=== PATIENT | male | born 1955 | race Caucasian/White ===

== ENCOUNTER 2023-01-02 18:43 | Inpatient (IN) | payer MEDICARE, OTHER ==
[~2023-01-02] VITALS: Ht 170.2 cm; Wt 55.3 kg
--- NOTE | 2023-01-02 19:41 | NUR ---
BLOOD DRAWN AND SENT TO LAB.
--- NOTE | 2023-01-02 19:50 | NUR ---
[facility] ACCORDING TO RESPIRATORY EQUIPMENT ASSISTANT REPORT PTS HGB IS 6.8. A/O X4 TOLORATING ROOM AIR WELL O2SAT 96%.
[2023-01-02 20:29] LABS: CREATININE 3.5 mg/dL (0.6-1.3); POTASSIUM 3.6 mmol/L (3.5-5.1)
[2023-01-02 20:42] LABS: BASOPHILS % (AUTO) 0.3 % (0.0-2.0); EOSINOPHILS % (AUTO) 1.7 % (0.0-6.0); HEMATOCRIT 22 % (39-51); LYMPHOCYTES # (AUTO) 0.8 K/uL (0.8-4.8); LYMPHOCYTES % (AUTO) 8.7 % (20.0-44.0); MEAN CORPUSCULAR HGB CONC 32 g/dl (31.0-36.0); MEAN CORPUSCULAR VOLUME 77 fL (80-96); MONOCYTES # (AUTO) 1.1 K/uL (0.1-1.30); MONOCYTES % (AUTO) 12.2 % (2.0-12.0); NEUTROPHILS # (AUTO) 6.9 K/uL (1.8-8.9); NEUTROPHILS % (AUTO) 77.1 % (43.0-81.0); PLATELET COUNT (AUTO) 538 K/uL (150-450); RED BLOOD CELL COUNT(AUTO) 2.84 MIL/uL (4.5-6.0); WHITE BLOOD COUNT (AUTO) 8.9 K/uL (4.3-11.0)
--- NOTE | 2023-01-02 22:03 | NUR ---
JIL SWABED AND SENT TO LAB.
[2023-01-02] MEDS ORDERED: PIPERACILLIN /TAZOBACTAM 3.375 G in IV D5W 50 ML IV ONE (22:30)
[2023-01-02 22:44] LABS: BILIRUBIN,DIRECT 0.2 mg/dL (0.0-0.2); BILIRUBIN,TOTAL 0.2 mg/dL (0.2-1.0); TOTAL PROTEIN, SERUM 7.6 g/dL (6.4-8.2)
[2023-01-02] MEDS ORDERED: PIPERACILLIN /TAZOBACTAM 3.375 G VIAL IV ONE (22:45)
[2023-01-02 22:46] LABS: ALBUMIN 1.4 g/dL (3.4-5.0)
[2023-01-03] VITALS (10 sets, daily range): BP systolic 112–144; BP diastolic 58–98
[2023-01-03] MEDS ORDERED: Z GUARD REMEDY 4 OZ OINT TP PRN
[2023-01-03] MEDS ORDERED: ACETAMINOPHEN 325 MG TABLET PO PRN
[2023-01-03] MEDS ORDERED: ONDANSETRON HCL/PF 4 MG/2 ML VIAL IVP PRN
--- NOTE | 2023-01-03 01:02 | NUR ---
REPORT GIVEN TO PAULINE UFLLER FOR KAMERON
--- NOTE | 2023-01-03 01:25 | NUR ---
[place] AND RN AT BEDSIDE WITH ACLS PROTOCOL. NAD NOTED DURING TRANSPORT.
--- NOTE | 2023-01-03 02:30 | NUR ---
DEBURR TECHNICIAN ADMISSION NOTES ADMITTED AT 67 Y/O MALE, A/O X 3, NON-AMBULATORY CAME FROM ER VIA GURNEY. TRANSFER TO BED SAFELY AND SECURED. NOTED RIGHT UPPER CHEST CATHETER FOR HD USE. WITH IV ACCESS AT RIGHT MIDLINE #20G PATENT AND INTACT. NOTED G-TUBE IN PLACED. HEAD TO TOE ASSESSMENT DONE AND RECORDED. INITIAL SKIN ASSESSMENT DONE NOTED DRY SKIN. PM CARE RENDERED. G-TUBE DRESSING DONE KEPT CLEAN AND DRY. ALL BELONGINGS ARE ACCOUNTED FOR. PATIENT IS ON HEMODIALYSIS TREATMENT,FOR SWALLOW AND PT EVALUATION IN AM. ON NPO FOR NOW. PATIENT ORIENTED TO THE FACILITY AND HOW TO USE THE CALL LIGHT. KEPT BED ON LOWER LOCKED POSITION. KEPT SIDE RAILS UP X 3 ALL THE TIME. KEPT PATIENT WARM AND COMFORTABLE. SAFETY PRECAUTIONS MAINTAINED.
--- NOTE | 2023-01-03 04:27 | NUR ---
CERAMIC DESIGN ENGINEER NOTES DOCTOR ASKING FOR RECONCILE MEDICATIONS. I ALREADY CALLED [facility] AND SPOKED TO MIKKI REGARDING THE LIST OF MEDICATIONS. STILL TRYING TO FIXED FAX MACHINE AT THIS TIME. WILL CONTINUE TO FOLLOW UP REGARDING THE LIST OF MEDICATIONS.
[2023-01-03] MEDS ORDERED: NEPRO 1,000 ML BOTTLE GT SCH ×2 (05:30→08:15)
--- NOTE | 2023-01-03 06:00 | NUR ---
HAND FUNNEL COATER NOTES STARTED G-TUBE FEEDING OF NEPRO 1.8 KCAL AT 65ML/HR TO RUN FOR 18 HOURS. WILL CONTINUE TO MONITOR
--- NOTE | 2023-01-03 06:32 | NUR ---
MECHANIC MARINE ENGINE CLOSING NOTES PATIENT IS IN BED, ASLEEP. ON MODERATE HIGH BACK REST POSITION. A/O X 4. UNABLE TO AMBULATE. NO S/S OF PAIN OR ANY DISCOMFORT AT THIS TIME. WITH IV ACCESS AT RIGHT HARESH ARM #20G SALINE LOCK, PATENT AND INTACT. WITH G-TUBE FEEDING WITH NEPRO 1.8 KCAL AT 65ML/HR RUNNING WELL. PATIENT ABLE TO TOLERATE ICE CHIPS, FOR NEPHROLOGY CONSULTS TODAY. STILL WAITING FOR RECONCILE MEDICATIONS. WITH RIGHT UPPER HD CATHETER KEPT CLEAN AND DRY. PM CARE RENDERED. TURN PATIENT FREQUENTLY. CONTINENT USES DIAPER AND URINAL. ATTACHED TO TELE MONITORING DEVICE. KEPT BED ON LOWER LOCKED POSITION. KEPT SIDE RAILS UP X 3 ALL THE TIME. SAFETY PRECAUTION MAINTAINED. WILL ENDORSED TO AM SHIFT FOR KAMERON.
[2023-01-03 07:12] LABS: BASOPHILS % (AUTO) 0.4 % (0.0-2.0); HEMATOCRIT 21 % (39-51); LYMPHOCYTES # (AUTO) 0.8 K/uL (0.8-4.8); LYMPHOCYTES % (AUTO) 8.6 % (20.0-44.0); MEAN CORPUSCULAR HGB CONC 32 g/dl (31.0-36.0); MEAN CORPUSCULAR VOLUME 78 fL (80-96); MONOCYTES # (AUTO) 1.2 K/uL (0.1-1.30); MONOCYTES % (AUTO) 12.8 % (2.0-12.0); NEUTROPHILS # (AUTO) 6.9 K/uL (1.8-8.9); NEUTROPHILS % (AUTO) 76.2 % (43.0-81.0); PLATELET COUNT (AUTO) 599 K/uL (150-450); RED BLOOD CELL COUNT(AUTO) 2.66 MIL/uL (4.5-6.0)
[2023-01-03 07:26] LABS: HEMOGLOBIN 6.6 g/dL (13.5-17.5)
--- NOTE | 2023-01-03 07:30 | NUR ---
LITIGATION SECRETARY OPENING NOTES RECEIVED PATIENT ON BED AWAKE AND A/O X4. ON ROOM AIR TOLERATING WELL. NO SOB NOTED. NOT IN DISTRESS. WITH NO COMPLAINTS OF PAIN AT THIS TIME. PATIENT VOICING OUT CONCERN THAT HE WOULD LIKE TO EAT BY MOUTH. INFORMED THAT SPEECH THERAPIST WILL BE HERE FOR SWALLOW EVAL. ON TELE MONITOR CURRENTLY READING SINUS TACHYCARDIA AT 112BPM. WITH IV ACCESS AT THE RIGHT UPPER ARM MIDLINE G20 SALINE LOCKED, PATENT AND INTACT. ON NEPRO 1.8 KCAL AT 65ML/HR VIA G-TUBE TOLERATING WELL. SAFETY MEASURES IN PLACED. CALL LIGHT WITHIN REACH. BED ON LOWEST LOCKED POSITION, SIDE RAILS UP X2. WILL CONTINUE TO MONITOR.
[2023-01-03 08:08] LABS: CALCIUM, SERUM 9.2 mg/dL (8.5-10.1); MAGNESIUM 2.5 mg/dL (1.8-2.4); PHOSPHORUS 3.4 mg/dL (2.5-4.9); POTASSIUM 3.9 mmol/L (3.5-5.1)
[2023-01-03 08:23] LABS: THYROID STIMULATING HORMONE 2.243 uIU/mL (0.358-3.74)
--- NOTE | 2023-01-03 08:30 | NUR ---
RN NOTE PATIENT WAS ABLE TO SWALLOW APPLE SAUCE AND ATE CRACKERS WITHOUT DIFFICULTY.
[2023-01-03] MEDS: PANTOPRAZOLE 40 MG TABLET.DR PO SCH (09:47)
[2023-01-03] MEDS ORDERED: BISA10SU11 RC (10:25)
[2023-01-03] MEDS ORDERED: SENN-261 GT (10:25)
[2023-01-03] MEDS ORDERED: PSYL1PAC8 GT (10:25)
[2023-01-03] MEDS ORDERED: TRAZ-257 GT (10:25)
[2023-01-03] MEDS ORDERED: NUT.237L67 GT (10:25)
[2023-01-03] MEDS ORDERED: NA P133E RC (10:25)
[2023-01-03] MEDS ORDERED: LIPA1CAP27 GT (10:25)
[2023-01-03] MEDS ORDERED: FAMO20TA8 GT (10:25)
[2023-01-03] MEDS ORDERED: NICO-676 TD (10:25)
[2023-01-03] MEDS ORDERED: ACET-868 GT (10:25)
[2023-01-03] MEDS ORDERED: SEVE400T3 GT (10:25)
[2023-01-03] MEDS ORDERED: PANT40SU2 GT (10:25)
[2023-01-03] MEDS ORDERED: HYDR-3980 GT (10:25)
[2023-01-03] MEDS ORDERED: POLY17PO4 GT (10:25)
[2023-01-03] MEDS ORDERED: SIME80TA15 GT (10:25)
--- NOTE | 2023-01-03 12:10 | NUR ---
RN NOTE PATIENT WAS ORDERED BY KATARZYNA CHICAS DNP FOR BLOOD TRANSFUSION 1U PRBC FOR HGB 6.6. VITAL SIGNS CHECKED-STABLE. CONSENT FOR BLOOD TRANSFUSION SIGNED BY PATIENT. BLOOD PRODUCT CHECKED BY 2 RNs. BLOOD TRANSFUSION STARTED AT 60ML/HR. WILL RECHECK VITAL SIGNS AFTER 15MINS. WILL MONITOR PATIENT.
--- NOTE | 2023-01-03 18:44 | NUR ---
CUSTOMER ACCOUNT EXECUTIVE CLOSING NOTES PATIENT ON BED AWAKE AND A/O X4. ON ROOM AIR TOLERATING WELL. NO SOB NOTED. NOT IN DISTRESS. WITH NO COMPLAINTS OF PAIN AT THIS TIME. ON TELE MONITOR CURRENTLY READING SINUS TACHYCARDIA AT 115BPM. WITH IV ACCESS AT THE RIGHT UPPER ARM MIDLINE G20 SALINE LOCKED, PATENT AND INTACT. ON NEPRO 1.8 KCAL AT 65ML/HR VIA G-TUBE TOLERATING WELL. PATIENT ON RENAL STD DIET CHOPPED FINE FOR ORAL GRATIFICATION. SAFETY MEASURES IN PLACED. CALL LIGHT WITHIN REACH. BED ON LOWEST LOCKED POSITION, SIDE RAILS UP X2. WILL ENDORSE TO NEXT SHIFT FOR KAMERON.
--- NOTE | 2023-01-03 19:30 | NUR ---
FOUNDER OPENING PATIENT ON BED AWAKE AND A/O X4. ON ROOM AIR TOLERATING WELL. NO SOB NOTED. NOT IN DISTRESS. WITH NO COMPLAINTS OF PAIN AT THIS TIME. ON TELE MONITOR CURRENTLY READING SINUS TACHYCARDIA AT 115BPM. WITH IV ACCESS AT THE RIGHT UPPER ARM MIDLINE G20 SALINE LOCKED, PATENT AND INTACT. ON NEPRO 1.8 KCAL AT 65ML/HR VIA G-TUBE TOLERATING WELL. PATIENT ON RENAL STD DIET REGULAR ORAL GRATIFICATION. SAFETY MEASURES IN PLACED. CALL LIGHT WITHIN REACH. BED ON LOWEST LOCKED POSITION, SIDE RAILS UP X2.
[2023-01-03 19:55] LABS: EOSINOPHILS % (MANUAL) 4 % (0-4); LYMPHOCYTES % (MANUAL) 9 % (16-48); MONOCYTES % (MANUAL) 11 % (0-11.0); NEUTROPHILS % (MANUAL) 76 (42-76)
[2023-01-03] MEDS ORDERED: POLYETHYLENE GLYCOL 3350 17 GM POWD.PACK PO PRN (21:30)
--- NOTE | 2023-01-03 22:35 | NUR ---
RN NOTE PRN NORCO GIVEN TOLERATED WELL.
[2023-01-03] MEDS ORDERED: HYDROCODONE/APAP 5/325MG TABLET PEG PRN (23:00)
[2023-01-04] VITALS (12 sets, daily range): BP systolic 126–144; BP diastolic 77–101
[2023-01-04 06:11] LABS: BASOPHILS % (AUTO) 0.5 % (0.0-2.0); EOSINOPHILS % (AUTO) 2.9 % (0.0-6.0); HEMATOCRIT 21 % (39-51); LYMPHOCYTES % (AUTO) 11.1 % (20.0-44.0); MEAN CORPUSCULAR HGB CONC 33 g/dl (31.0-36.0); MEAN CORPUSCULAR VOLUME 78 fL (80-96); MONOCYTES # (AUTO) 1.1 K/uL (0.1-1.30); MONOCYTES % (AUTO) 12.9 % (2.0-12.0); NEUTROPHILS # (AUTO) 6.3 K/uL (1.8-8.9); NEUTROPHILS % (AUTO) 72.6 % (43.0-81.0); PLATELET COUNT (AUTO) 523 K/uL (150-450); RED BLOOD CELL COUNT(AUTO) 2.65 MIL/uL (4.5-6.0); WHITE BLOOD COUNT (AUTO) 8.6 K/uL (4.3-11.0)
--- NOTE | 2023-01-04 06:13 | NUR ---
RN CLOSING NOTE PATIENT ON BED AWAKE AND A/O X4. ON ROOM AIR TOLERATING WELL. NO SOB NOTED. NOT IN DISTRESS. WITH NO COMPLAINTS OF PAIN AT THIS TIME. ON TELE MONITOR CURRENTLY READING SINUS TACHYCARDIA AT 110BPM. WITH IV ACCESS AT THE RIGHT UPPER ARM MIDLINE G20 SALINE LOCKED, PATENT AND INTACT. ON NEPRO 1.8 KCAL AT 50ML/HR VIA G-TUBE TOLERATING WELL. PATIENT ON RENAL STD DIET CHOPPED FINE FOR ORAL GRATIFICATION. PT CURRENTLY HAVING DIALYSIS AT BEDSIDE. SAFETY MEASURES IN PLACED. CALL LIGHT WITHIN REACH. BED ON LOWEST LOCKED POSITION, SIDE RAILS UP X2. WILL ENDORSE TO NEXT SHIFT FOR KAMERON
[2023-01-04 06:26] LABS: HEMOGLOBIN 6.9 g/dL (13.5-17.5)
[2023-01-04 06:27] LABS: CALCIUM, SERUM 8.6 mg/dL (8.5-10.1); POTASSIUM 3.8 mmol/L (3.5-5.1)
--- NOTE | 2023-01-04 06:32 | NUR ---
RN NOTE PT HGB THIS MORNING IS 6.9 RISK INTERN, SAUSAGE MACHINE OPERATOR BARAJAS INFORMED AWAITING FOR ANY NEW ORDERS.
--- NOTE | 2023-01-04 07:30 | NUR ---
PLANT CONTROL OPERATOR NOTES PATIENT IN BED ALERT ORIENTED X 4, NO ACUTE DISTRESS NOTED, BREATHING UNLABORED. DENIED ANY PAIN. ON PURCHASING ASSISTANT. WITH ON GOING DIALYSIS AT THIS TIME WITH DIALYSIS NURSE AT BEDSIDE. GTUBE PATENT AND INTACT RUNNING ORDERED TUBE FEEDING IV ACCESS PATIENT AND INTACT, NO REDNESS, NO SWELLING NOTED. SAFETY MEASURES IN PLACE, CALL LIGHT WITHIN REACH, WILL CONTINUE TO MONITOR ACCORDINGLY.
[2023-01-04] MEDS: PANTOPRAZOLE 40 MG TABLET.DR PO SCH (08:02)
--- NOTE | 2023-01-04 09:00 | NUR ---
FISHING CAPTAIN NOTES FOLLOWED UP WITH DR KATARZYNA CHICAS, PRESENT ON THE FLOOR REGARDING ORDERS, MADE AWARE THAT HEMOGLOBIN IS 6.9, NO NEW ORDERS MADE AT THIS TIME. AND SAID LABORATORY TEST ORDERED FOR TOMORROW ALREADY TO CHECK AGAIN.
[2023-01-04] MEDS ORDERED: HYDROCODONE/APAP 10/325MG TABLET PO PRN (11:00)
[2023-01-04] MEDS ORDERED: NA PHOS,M-B/NA PHOS,DI-BA 1 EA ENEMA RC PRN (11:00)
[2023-01-04] MEDS ORDERED: ACETAMINOPHEN 325 MG TABLET PO PRN (11:00)
[2023-01-04] MEDS ORDERED: POLYETHYLENE GLYCOL 3350 17 GM POWD.PACK GT PRN (11:00)
[2023-01-04] MEDS ORDERED: PANTOPRAZOLE 40 MG/PACK PACK GT SCH (11:00)
[2023-01-04] MEDS ORDERED: SIMETHICONE 80 MG TAB.CHEW GT PRN (11:00)
[2023-01-04] MEDS ORDERED: PSYLLIUM SEED 1 PKT PACKET GT PRN (11:00)
[2023-01-04] MEDS ORDERED: BISACODYL SUPP (10 MG) 10 MG/SUPP.RECT SUPP.RECT RC PRN (11:00)
[2023-01-04] MEDS: LIPASE/PROTEASE/AMYLASE 1 EACH CAPSULE.DR GT SCH ×2 (13:02→17:21)
[2023-01-04] MEDS: SEVELAMER CARBONATE 800 MG TABLET PO SCH ×2 (13:02→17:21)
--- NOTE | 2023-01-04 15:55 | NUR ---
RAIL BENDER NOTES BLOOD TRANSFUSION STARTED, VERIFIED WITH ANOTHER RN, VITAL SIGNS STABLE. WILL CONTINUE MONITOR
--- NOTE | 2023-01-04 16:10 | NUR ---
PLANT MAINTENANCE MECHANIC NOTES BLOOD TRANSFUSION ONGOING, VITAL SIGNS REMAIN STABLE. WILL CONTINUE MONITOR Addendum: 01/04/23 at 1715 by FARAZ MARTINS RN ADDENDUM NO ADVERSE REACTION NOTED.
--- NOTE | 2023-01-04 16:55 | NUR ---
ORCHARD MANAGER NOTES BLOOD TRANSFUSION ONGOING, VITAL SIGNS REMAIN STABLE. WILL CONTINUE MONITOR
[2023-01-04 17:14] LABS: EOSINOPHILS % (MANUAL) 1 % (0-4); LYMPHOCYTES % (MANUAL) 17 % (16-48); MONOCYTES % (MANUAL) 8 % (0-11.0); NEUTROPHILS % (MANUAL) 74 (42-76)
--- NOTE | 2023-01-04 18:58 | NUR ---
ALL SOURCE INTELLIGENCE NOTES PATIENT IN BED ALERT ORIENTED X 4, NO ACUTE DISTRESS NOTED, BREATHING UNLABORED. DENIED ANY PAIN. ON CATTLE SPRAYER. NO BLOOD TRANSFUSION ADVERSE REACTION NOTED. VITAL SIGNS REMAIN STABLE. GTUBE PATENT AND INTACT. IV ACCESS PATIENT AND INTACT, NO REDNESS, NO SWELLING NOTED. NEEDS ATTENDED AND ANTICIPATED. SAFETY MEASURES IN PLACE, CALL LIGHT WITHIN REACH. WILL ENDORSE TO NIGHT NURSE FOR CONTINUITY OF CARE
[2023-01-04] MEDS: TRAZODONE 50 MG TABLET GT SCH (22:31)
[2023-01-04] MEDS: SENNOSIDES 8.6 MG TABLET GT SCH (22:32)
--- NOTE | 2023-01-05 04:31 | NUR ---
CLOSING NOTES: ALERT AND ORIENTATED X3 RECEIVED 1 UNIT PRBC IN DAY SHIFT ENDED ON SUSTAINABLE SYSTEMS ANALYST NO REACTION HGB 6.9 PRIOR THE UNIT OF BLOOD AM LAB THERE IS A CBC TO BE DRAWN USES THE URINAL BEDREST NO SEEN BLEEDING THIS 12 HOURS PEG USED FOR MEDICATION AT THIS TIME PATIENT'S CHOICE AND HIS TUBE FEEDING IS ON HOLD PER PT CHOICE AND THE MD IS AWARE LAST HD 01/04 AND 2 LITERS REMOVED
[2023-01-05 05:00] VITALS: BP 130/83
[2023-01-05 05:51] LABS: BASOPHILS % (AUTO) 0.5 % (0.0-2.0); EOSINOPHILS % (AUTO) 3.1 % (0.0-6.0); HEMATOCRIT 25 % (39-51); HEMOGLOBIN 8.1 g/dL (13.5-17.5); LYMPHOCYTES # (AUTO) 0.9 K/uL (0.8-4.8); LYMPHOCYTES % (AUTO) 10.7 % (20.0-44.0); MEAN CORPUSCULAR HGB CONC 33 g/dl (31.0-36.0); MEAN CORPUSCULAR VOLUME 79 fL (80-96); MONOCYTES # (AUTO) 1.2 K/uL (0.1-1.30); MONOCYTES % (AUTO) 13.8 % (2.0-12.0); NEUTROPHILS # (AUTO) 6.1 K/uL (1.8-8.9); NEUTROPHILS % (AUTO) 71.9 % (43.0-81.0); PLATELET COUNT (AUTO) 535 K/uL (150-450); WHITE BLOOD COUNT (AUTO) 8.4 K/uL (4.3-11.0)
[2023-01-05 06:08] LABS: CALCIUM, SERUM 8.9 mg/dL (8.5-10.1); CREATININE 3.2 mg/dL (0.6-1.3); POTASSIUM 3.7 mmol/L (3.5-5.1)
--- NOTE | 2023-01-05 07:27 | NUR ---
SCREW MACHINE OPERATOR OPENING NOTES: RECEIVED PATIENT ASLEEP, EASILY ROUSED, A/O X4. ON ROOM AIR TOLERATING WELL. NO S/S OF SOB OR ACUTE DISTRESS NOTED. DENIES PAIN AT THIS TIME. TELE MONITOR CURRENTLY READS SINUS TACHYCARDIA AT 118 BPM. IV ACCESS AT THE RIGHT UPPER ARM MIDLINE #20. SALINE LOCKED, PATENT AND INTACT. G-TUBE SITE NOTED, C/D/I, TF ON HOLD PER MD. PATIENT ON RENAL STD DIET. SAFETY MEASURES IN PLACE; CALL LIGHT, TABLE AND URINAL WITHIN REACH; WILL CONT WITH PLAN OF CARE DURING SHIFT.
[2023-01-05 08:00] VITALS: BP 140/85
[2023-01-05] MEDS ORDERED: EPOETIN ALFA (4000 UNIT) 4,000 UNIT/ML VIAL IV SCH (08:00)
[2023-01-05] MEDS: PANTOPRAZOLE 40 MG TABLET.DR PO SCH (08:11)
[2023-01-05] MEDS: SEVELAMER CARBONATE 800 MG TABLET PO SCH ×3 (08:11→16:13)
[2023-01-05] MEDS: LIPASE/PROTEASE/AMYLASE 1 EACH CAPSULE.DR GT SCH ×3 (08:11→16:13)
[2023-01-05] MEDS ORDERED: NICOTINE PATCH (7MG) 7 MG PATCH.TD24 TD SCH (09:00)
--- NOTE | 2023-01-05 09:08 | NUR ---
RN NOTES: HELD EPOGEN, NOT DUE
[2023-01-05 12:00] VITALS: BP 124/84
[2023-01-05] MEDS ORDERED: NEPRO VAN 237 ML CAN PO PRN (13:00)
[2023-01-05 16:04] VITALS: BP 115/74
--- NOTE | 2023-01-05 18:20 | NUR ---
MS RN CLOSING NOTES: PATIENT ASLEEP, EASILY ROUSED, A/O X4. ON ROOM AIR TOLERATING WELL. NO S/S OF SOB OR ACUTE DISTRESS NOTED. DENIES PAIN AT THIS TIME. IV ACCESS AT THE RIGHT UPPER ARM MIDLINE #20. SALINE LOCKED, PATENT AND INTACT. G-TUBE SITE NOTED, C/D/I, TF ON HOLD PER MD. PATIENT ON RENAL STD DIET. DC INSTRUCTIONS, BELONGINGS DISCUSSED WITH PT, DOCUMENTS SIGNED. REPORT GIVEN TO COLLIN EVANS RN. PT REFUSED PHOTO OF SKIN ISSUES, PT DOES NOT HAVE OPEN WOUNDS; PARAMEDIC INSTRUCTOR TIME [facility] @ 2030 PER CM. ALL SAFETY MEASURES IN PLACE; CALL LIGHT, TABLE AND URINAL WITHIN REACH; WILL ENDORSE TO PM SHIFT.
--- NOTE | 2023-01-05 19:30 | NUR ---
CONTINUITY OF CARE Patient in bed, awake. Oxygen sat high 90's in RA, no acute distress, denies pain. Patient to be discharged, awaiting transport.
[2023-01-05 20:00] VITALS: BP 128/68
[2023-01-05] MEDS: TRAZODONE 50 MG TABLET GT SCH (21:19)
[2023-01-05] MEDS: SENNOSIDES 8.6 MG TABLET GT SCH (21:19)
--- NOTE | 2023-01-05 22:16 | NUR ---
DISCHARGED Transport arrived. FRANCY Midline IV catheter removed, site no bleeding. Patient denies pain. Skin photo placed in the chart. All personal belongings send with the patient upon dc. Patient left hosp in no acute distress, stable condition via [facility]/ ambulance. DC instruction/packet send with the patient.
== END 2023-01-05 22:16 | disposition home or self-care (01) | DRG 811 ==
LOC: ER 18:49 → TELE 01-03 00:45 → MED 01-05 11:19 → UNDODISIN 01-06
PROVIDERS: ADMIT Nurse Practitioner Family; ATTEND Nurse Practitioner Acute Care
PROC: 30233N1 Transfusion of Nonautologous Red Blood Cells into Peripheral Vein, Percutaneous Approach (ICD-10-PCS; principal; 2023-01-03)
PROC: 5A1D70Z Performance of Urinary Filtration, Intermittent, Less than 6 Hours Per Day (ICD-10-PCS; 2023-01-04)
DX: D50.9 Iron deficiency anemia, unspecified (principal); E43 Unspecified severe protein-calorie malnutrition; N18.6 End stage renal disease; N17.0 Acute kidney failure with tubular necrosis; I50.42 Chronic combined systolic (congestive) and diastolic (congestive) heart failure; I13.2 Hypertensive heart and chronic kidney disease with heart failure and with stage 5 chronic kidney disease, or end stage renal disease; E87.1 Hypo-osmolality and hyponatremia; G93.1 Anoxic brain damage, not elsewhere classified; J84.9 Interstitial pulmonary disease, unspecified; J98.11 Atelectasis; R13.10 Dysphagia, unspecified; N40.0 Benign prostatic hyperplasia without lower urinary tract symptoms; Z20.822 Contact with and (suspected) exposure to COVID-19; Z99.2 Dependence on renal dialysis; J44.9 Chronic obstructive pulmonary disease, unspecified; D75.839 Thrombocytosis, unspecified; E88.09 Other disorders of plasma-protein metabolism, not elsewhere classified; Z93.1 Gastrostomy status; Z87.19 Personal history of other diseases of the digestive system; Z86.74 Personal history of sudden cardiac arrest; M19.90 Unspecified osteoarthritis, unspecified site; F19.11 Other psychoactive substance abuse, in remission; D63.8 Anemia in other chronic diseases classified elsewhere; K59.00 Constipation, unspecified; Z87.891 Personal history of nicotine dependence
CPT/HCPCS: 36415; 71045-TC; 76770-TC; 80048-TC; 80061-TC; 80076-TC; 82607-TC; 82728-TC; 83540-TC; 83605-TC; 83735-TC; 84100-TC; 84443-TC; 85025-TC; 85730-TC; 86706; 86850-TC; 87040-TC; 87081-TC; 87340; 90935-TC; 92507-TC; 92526; 92611-TC; 97116-TC; 97530-TC; C9803; G0378; J2543; J7030; J7050; J7060; P9016